=== PATIENT | female | born 1955 | race Caucasian/White ===

== ENCOUNTER 2021-04-27 07:15 | Emergency (ER) | payer MEDICARE ==
[~2021-04-27] VITALS: Ht 162.6 cm; Wt 95.0 kg
[~2021-04-27 07:15] MED LIST: ASPI-963 PO; CALC1CAP8 PO; FERR325T17 PO; HYDR25TA6 PO; IPRA3AMP18 NEB; LEVO50TA5 PO; LISI40TA9 PO; OMEP-110 PO; SERT100T32 PO; SIMV40TA20 PO
--- NOTE | 2021-04-27 07:27 | NUR ---
[facility] AT BEDSIDE FOR EVALUATION.
--- NOTE | 2021-04-27 07:34 | NUR ---
PATIENT BIB EMS WITH CHIEF C/O HEADACHE X1 WEEK AND DIZZINESS THAT STARTED THIS MORNING. PATIENT'S BP AT SCENE WAS 210/100, OTHER VSS EN ROUTE, NO INTERVENTIONS. UPON ASSESSMENT PATIENT REPORTS HEADACHE IS RESOLVED BUT C/O FEELING "BLOATED" AND "NOT RIGHT." PATIENT REPORTS HER BP MEDICATION WAS CHANGED A WEEK AGO, UNSURE WHAT WAS CHANGED. PATIENT NORMALLY WEARS 3 LPM O2 AT HOME, PLACED ON 3 LPM VIA NC, STURATION 98%-99%. NADN, CONNECTED TO MONITOR, VSS, BP IS 180'S/70'S, CALL LIGHT WITHIN REACH.
[2021-04-27] MEDS ORDERED: LISINOPRIL 20 MG TABLET ONE (07:45)
--- NOTE | 2021-04-27 07:54 | NUR ---
PATIENT TO IMAGING.
[2021-04-27] MEDS ORDERED: LISINOPRIL 20 MG TABLET PO ONE (08:00)
[2021-04-27 08:05] LABS: BASOPHILS % (AUTO) 1 % (0-1); EOSINOPHILS % (AUTO) 5 % (1-7); LYMPHOCYTES % (AUTO) 21 % (22-44); MEAN CORPUSCULAR HEMOGLOBIN 30.8 pg (27.0-34.8); MEAN CORPUSCULAR HGB CONC 33.9 g/dL (32.4-35.8); MEAN PLATELET VOLUME 8.7 fL (7.4-10.4); MONOCYTES % (AUTO) 6 % (2-9); NEUTROPHILS % (AUTO) 66 % (42-75); PLATELET COUNT 146 x10^3/uL (130-400); RED BLOOD COUNT 4.69 x10^6/uL (3.82-5.3); RED CELL DISTRIBUTION WIDTH 13.1 % (9.6-15.2)
[2021-04-27 08:16] LABS: ALBUMIN 3.6 g/dL (3.4-5.0); CALCIUM 8.8 mg/dL (8.5-10.1); CHLORIDE 106 mmol/L (98-107); CREATININE 0.67 mg/dL (0.55-1.02)
[2021-04-27 08:36] LABS: ANION GAP 5 mmol/L (5-15)
--- NOTE | 2021-04-27 08:42 | NUR ---
PATIENT RESTING IN [facility], CONNECTED TO MONITOR, VSS, CALL LIGHT WITHIN REACH. PATIENT UP FOR RECHECK.
[2021-04-27] MEDS ORDERED: KETOROLAC 30 MG/1 ML ONE (09:17)
[2021-04-27 09:24] VITALS: BP 150/70
[2021-04-27] MEDS ORDERED: KETOROLAC 30 MG/1 ML IM ONE (09:30)
--- NOTE | 2021-04-27 09:30 | NUR ---
MESSAGE LEFT FOR PATIENT'S DAUGHTER FOR RIDE PER PATIENT'S REQUEST.
--- NOTE | 2021-04-27 09:45 | NUR ---
MESSAGE LEFT FOR PATIENT'S FRIEND TO COME GET PATIENT.
--- NOTE | 2021-04-27 10:03 | NUR ---
Patient given discharge instructions and taxi voucher and they have confirmed that they understand the instructions. Patient ambulatory with steady gait. NAD, all questions answered appropriately, denies additional needs at this time. No personal belongings left in room after discharge.
== END 2021-04-27 10:04 | disposition home or self-care (01) ==
LOC: ED 09:50
DX: I10 Essential (primary) hypertension (principal); R51.9 Headache, unspecified; R11.10 Vomiting, unspecified; K21.9 Gastro-esophageal reflux disease without esophagitis
CPT/HCPCS: 36415; 70450; 80048; 82040; 85025; 96372; 99284; J1885

== ENCOUNTER → 2021-05-04 | Outpatient (CLI) | payer MEDICARE | END | disposition home or self-care (01) | LOC: CFH 12:35 | PROVIDERS: ATTEND Nurse Practitioner | DX: I65.23 Occlusion and stenosis of bilateral carotid arteries (principal); I77.9 Disorder of arteries and arterioles, unspecified; E78.5 Hyperlipidemia, unspecified | CPT/HCPCS: 93880 ==